=== PATIENT | female | born 1945 | race Caucasian/White ===

== ENCOUNTER 2020-07-20 17:55 | Emergency (ER) | payer OTHER, MEDICARE, SELFPAY ==
--- NOTE | ~2020-07-20 | CT_ITS ---
EXAMINATION: CT brain wo con INDICATION: Head injury COMPARISON: None TECHNIQUE: Standard unenhanced head CT. The dose-length product (DLP) was 605.33 mGy-cm. The mA was a djusted according to patient size. Iterative reconstruction technique was employed. FINDINGS: There is no intracranial hemorrhage, acute infarction, or abnormal mass lesion. The ventric les are normal. There is no abnormal mass effect or midline shift. The mccracken-white matter differentiat ion is normal. The basal cisterns are patent. The orbits are normal. There is opacification of the et hmoidal air cells. A fluid level is present in the right maxillary sinus. There is soft tissue swelli ng of the left frontal scalp. IMPRESSION: 1. No acute intracranial abnormality. 2. Opacification of the ethmoidal air cells and right maxillary sinus likely related to nasal bone fr actures seen on facial CT. Reviewed, dictated and finalized at location A. IMPRESSION: 1. No acute intracranial abnormality. 2. Opacification of the ethmoidal air cells and right maxillary sinus likely re lated to nasal bone fractures seen on facial CT.
--- NOTE | ~2020-07-20 | CT_ITS ---
EXAMINATION: CT facial & cervical spine wo DATE: 07/20/2020 19:15 INDICATION: Head injury, facial pain TECHNIQUE: Computed tomography (CT) of the maxillofacial region and cervical spine was performed with out intravenous contrast. The dose-length product (DLP) was 184.52 mGy-cm. Automated exposure control and iterative reconstruction technique were employed. COMPARISON: None FINDINGS: MAXILLOFACIAL CT: There are comminuted fractures of the nasal bones with surrounding soft tissue swelling. There is par tial opacification of the nasal cavity, ethmoidal air cells, and right maxillary sinus. No additional facial fracture is identified. The orbits are unremarkable. The globes are intact. CERVICAL SPINE CT: There is no fracture, dislocation, or subluxation. The vertebral body heights are normal. There is mi ld loss of intervertebral disc space height at C6-7. The odontoid is intact. The prevertebral soft ti ssues are normal. Small degenerative osteophytes project from the anterior endplates of multiple vert ebral bodies. There is scarring in the lung apices. Nodules the lung apices measuring up to 4 mm like ly reflect old granulomatous disease. IMPRESSION: 1. Comminuted nasal bone fractures with partial opacification of the nasal cavity, ethmoidal air cell s, and right maxillary sinus. 2. Mild cervical spondylosis without acute cervical spine abnormality. 3. Nodules of the lung apices measuring up to 4 mm. If the patient has no risk factors for malignancy , no further follow up is required. If there are risk factors for malignancy (i.e., history of smoki ng, asbestos or radiation exposure), consider followup CT in 12 months. Reviewed, dictated and finalized at location A. IMPRESSION: 1. Comminuted nasal bone fractures with partial opacification of the nasal cavi ty, ethmoidal air cells, and right maxillary sinus. 2. Mild cervical spondylosis without acute cervical spine abnormality. 3. Nodules of the lung apices measuring up to 4 mm. If the patient has no risk factors for malignancy, no further follow up is required. If there are risk fa ctors for malignancy (i.e., history of smoking, asbestos or radiation exposure) , consider followup CT in 12 months.
--- NOTE | ~2020-07-20 | XR_ITS ---
EXAMINATION: XR chest 1V portable INDICATION: Head injury TECHNIQUE: Portable AP chest at 1915 hours COMPARISON: None available FINDINGS: The lungs are free of acute opacities. There is no pleural effusion or pneumothorax. The ca rdiomediastinal silhouette is normal. IMPRESSION: 1. No acute cardiopulmonary abnormality. Reviewed, dictated and finalized at location A.
--- NOTE | ~2020-07-20 | XR_ITS ---
EXAMINATION: XR humerus LT INDICATION: Left arm swelling TECHNIQUE: Two views of the left humerus are obtained. COMPARISON: None available FINDINGS: Bone alignment is normal. There is no fracture. 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 There is soft tissue swelling of the upper arm. IMPRESSION: 1. Soft tissue swelling without acute osseous abnormality. Reviewed, dictated and finalized at location A.
[2020-07-20 17:56] VITALS: BP 182/91; PULSE 87; RESP 18; O2SAT 100
[2020-07-20] MEDS: ACETAMINOPHEN 500 MG TABLET 1000 MG PO (18:47)
--- NOTE | 2020-07-20 19:21 | PC.NURSE ---
Pt at CT at this time
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
[2020-07-20] MEDS: LORazepam (*CRX) 1 MG TABLET PO (20:22)
[2020-07-20 20:24] VITALS: BP 141/71; PULSE 69; RESP 16; TEMP 36.6; O2SAT 100
== END 2020-07-20 20:25 | disposition home or self-care (01) ==
PROVIDERS: Emergency Provider Emergency Medicine; PCP Family Medicine
DX: S02.2XXA Fracture of nasal bones, initial encounter for closed fracture (principal); V49.60XA Unspecified car occupant injured in collision with unspecified motor vehicles in traffic accident, initial encounter; S16.1XXA Strain of muscle, fascia and tendon at neck level, initial encounter
CPT/HCPCS: 70450; 70486; 71045; 72125; 73060; 99284; A9270

== ENCOUNTER 2025-03-08 11:25 | Outpatient (CLI) | payer MEDICARE, SELFPAY ==
--- NOTE | ~2025-03-08 | MR_ITS ---
MRI of the right knee Clinical history: Pain Technique: Coronal proton density and proton density-weighted images, sagittal proton-density and T2 fat-sat images, and axial proton-density fat-saturated images were acquired. Findings: Anterior and posterior cruciate ligaments are intact. Medial collateral ligament and the la teral collateral ligament, but are intact. Popliteus tendon is intact. Suspected subtle oblique/horizontal tear of the posterior horn of the medial meniscus. There is large horizontal tear of the anterior horn and body of the lateral meniscus. There is mild chondromalacia of the femoral trochlea. There is mild diffuse chondral thinning of the medial femoral condyle. Bone marrow signals are unremarkable. Extensor mechanism is intact. There is minimal joint effusion. No Bowers's cyst. Impression: Large horizontal tear of the anterior horn and body of the lateral meniscus. Probable subtle oblique/horizontal tear of the posterior horn of the medial meniscus. Minimal degenerative change. Minimal joint effusion. Reviewed, dictated and finalized at [facility]. Impression: Large horizontal tear of the anterior horn and body of the lateral meniscus. Probable subtle oblique/horizontal tear of the posterior horn of the medial men iscus. Minimal degenerative change. Minimal joint effusion.
== END 2025-03-08 11:26 | disposition home or self-care (01) ==
LOC: MICIMG 11:26
PROVIDERS: PCP Family Medicine; Visit Provider Physician Assistant
DX: S83.281A Other tear of lateral meniscus, current injury, right knee, initial encounter (principal); X58.XXXA Exposure to other specified factors, initial encounter
CPT/HCPCS: 73721